=== PATIENT | male | born 2000 | race Caucasian/White ===

== ENCOUNTER 2020-05-17 15:13 | Emergency (ER) | payer OTHER, SELFPAY ==
[2020-05-17 15:15] VITALS: BP 126/78; PULSE 80; RESP 18; TEMP 36.7; O2SAT 100; BMI 23.0
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
[2020-05-17] MEDS: ondansetron 2 mg/ML SDV 2 mL 4 MG IVP (15:50)
[2020-05-17] MEDS: morphine 4 mg/mL SDV 1 mL IVP (15:51)
[2020-05-17] MEDS: iohexol 300 mg/mL 100 mL Btl IV (16:31)
[2020-05-17] MEDS: ketorolac 30 mg/mL INJ IVP (18:40)
[2020-05-17] MEDS: orphenadrine 30 mg/mL Inj 2 mL 60 MG IVP (18:40)
[2020-05-17 18:49] VITALS: BP 128/76; PULSE 76; RESP 18; O2SAT 99
== END 2020-05-17 18:50 | disposition home or self-care (01) ==
PROVIDERS: Emergency Provider Physician Assistant
DX: M54.9 Dorsalgia, unspecified (principal); V47.5XXA Car driver injured in collision with fixed or stationary object in traffic accident, initial encounter
CPT/HCPCS: 12345; 70450; 71260; 72125; 72128; 72131; 73030; 96374; 96375; 99283; J1885; J2270; J2360; J2405; Q9967